=== PATIENT | female | born 1945 | race Caucasian/White ===

== ENCOUNTER 2020-08-01 20:43 | Emergency (ER) | payer OTHER ==
[2020-08-01 21:03] VITALS: BP 162/87; PULSE 95; TEMP 98.2; BMI 25.4
[2020-08-01] MEDS ORDERED: ACETAMINOPHEN 325 MG TABLET (FP) PO ONE (21:16)
[2020-08-01] MEDS ORDERED: ACETAMINOPHEN 325 MG TABLET (FP) ONE (21:19)
[2020-08-01] MEDS ORDERED: NAPROXEN 500 MG TABLET PO ONE (22:43)
[2020-08-01] MEDS ORDERED: NAPROXEN 500 MG TABLET ONE (22:44)
== END 2020-08-01 22:53 | disposition home or self-care (01) ==
LOC: FER 20:43
DX: S52.501A Unspecified fracture of the lower end of right radius, initial encounter for closed fracture (principal)
CPT/HCPCS: 73090-TC-RT-FY; 73110-TC-RT-FY; 73130-TC-RT-FY; 99284-25

== ENCOUNTER 2023-12-26 09:53 | Day surgery (SDC) | payer OTHER, MEDICARE ==
[2023-12-21 16:39] VITALS: BMI 25.7
[2023-12-26] MEDS: PHENYLEPHRINE 2.5% OPTHALMIC DROP 2ML BOTTLE ONE (10:30)
[2023-12-26] MEDS: TROPICAMIDE 1% OPHTH SOLN 15 ML BOTTLE ONE (10:30)
[2023-12-26] MEDS: CYCLOPENTOLATE 2% OPHTH SOLN 2 ML BOTTLE ONE (10:30)
[2023-12-26] MEDS: CIPROFLOXACIN 0.3% EYE DROPS 5 ML BOTTLE ONE (10:30)
[2023-12-26 10:31] VITALS: RESP 18
[2023-12-26] MEDS ORDERED: LIDOCAINE 1% P/F 10 MG/ML VIAL ONE (11:31)
[2023-12-26] MEDS ORDERED: NEO/POLYMYX B SULF/DEXAMETH OPHTHALMIC 5ML BOTTLE ONE (11:31)
[2023-12-26] MEDS ORDERED: BSS (NA/CA/MG/K) BALANCED SALT SOLUTION OPHTH SOLN 15 ML BOTTLE ONE (11:31)
[2023-12-26] MEDS ORDERED: TETRACAINE 0.5% OPHTH SOLN 2 ML BOTTLE ONE (11:31)
[2023-12-26] MEDS ORDERED: CARBACHOL 0.01% INTRA-OCULAR 1.5 ML VIAL ONE (11:31)
[2023-12-26] MEDS ORDERED: MIDAZOLAM HCL 2 MG/2 ML SINGLE DOSE VIAL ONE (11:52)
[2023-12-26 12:30] VITALS: TEMP 97.9
[2023-12-26 12:54] VITALS: BP 121/59; PULSE 69
== END 2023-12-26 13:10 | disposition home or self-care (01) ==
LOC: FASU 09:53
PROVIDERS: ATTEND Ophthalmology
PROC: 08RJ3JZ Replacement of Right Lens with Synthetic Substitute, Percutaneous Approach (ICD-10-PCS; principal; 2023-12-26 12:02)
DX: H26.8 Other specified cataract (principal)
CPT/HCPCS: 66984; V2632